=== PATIENT | male | born 1985 | race Caucasian/White ===

== ENCOUNTER 2016-10-21 17:04 | Observation (INO) | payer BC, MEDICAID ==
[2016-10-21] MEDS ORDERED: LORazepam INJ* 2 MG/ML 1 ML VIAL IV ONE ×3 (17:38)
[2016-10-21] MEDS ORDERED: NS 0.9% 1000 ML* 3,000 ML IV ONE ×2 (17:38)
[2016-10-21] MEDS: NS 0.9% 1000 ML* 3,000 ML IV ONE ×2 (17:45→18:22)
[2016-10-21 17:50] LABS: Hematocrit 49 % (42-52); Hemoglobin 17.1 g/dl (14.0-18.0); Mean Corpuscular HGB Conc 35 g/dl (31-36); Mean Corpuscular Hemoglobin 31 pg (27-31); Mean Corpuscular Volume 89 fL (80-94); Mean Platelet Volume 8 um3 (7.4-10.4); Red Blood Count 5.47 10^6/ul (4.0-5.4); Red Cell Distribution Width 13 % (10.5-15); White Blood Count 13.6 10^3/ul (3.5-10.8)
[2016-10-21 18:01] LABS: Albumin 5.3 g/dL (3.2-5.2); BUN/Creatinine Ratio 11.8 (8-20); Calcium 10.7 mg/dL (8.6-10.3); EGFR African American 91.1 (>60); EGFR Non-African American 70.8 (>60); Globulin 3.5 g/dL (2-4); Total Bilirubin 1.9 mg/dL (0.2-1.0); Total Protein 8.8 g/dL (6.4-8.9)
[2016-10-21 18:04] LABS: Potassium 2.6 mmol/L (3.5-5.0)
[2016-10-21 18:30] LABS: TSH (Thyroid Stimulating Horm) 1.06 mcIU/mL (0.34-5.60)
[2016-10-21] MEDS ORDERED: cefTRIAXone(*) 1 GM in NS 0.9% 50 ML* 50 ML IVPB ONE ×6 (18:30)
[2016-10-21] MEDS ORDERED: Azithromycin IV(*) 500 MG in NS 0.9% 250 ML* 250 ML IVPB ONE ×6 (18:30)
[2016-10-21] MEDS ORDERED: KCL 20 MEQ/100 ML IVPREMIX* 20 MEQ/100 ML BAG IV ONE ×3 (18:31)
[2016-10-21] MEDS ORDERED: Potassium Chlor TAB* 20 MEQ TAB.ER PO ONE ×6 (18:31→21:00)
--- NOTE | 2016-10-21 19:00 | RAD ---
INDICATION: Shortness of breath, cough. Exclude pneumonia. COMPARISON: None. TECHNIQUE: Dual energy PA and routine lateral views of the chest were obtained. REPORT: Mild bilateral upper lung zone alveolar opacities. Negative for volume loss to suggest atelectasis. Negative for pleural effusion or pneumothorax. The heart, pulmonary vasculature, and mediastinal contours are unremarkable. IMPRESSION: Mild bilateral upper lung zone alveolar opacities suspicious for bronchopneumonia.
[2016-10-21 19:31] LABS: Urine Bilirubin Negative (Negative); Urine Glucose 1+(50 mg/dL) (Negative); Urine Nitrite Negative (Negative)
[2016-10-21 19:46] LABS: Benzodiazepine Urine Screen None Detected (None Detect)
[2016-10-21] MEDS ORDERED: Acetaminophen TAB* 325 MG PO PRN (20:27)
[2016-10-21] MEDS ORDERED: LORazepam INJ* 2 MG/ML 1 ML VIAL IV PUSH PRN (20:27)
[2016-10-21] MEDS ORDERED: LORazepam INJ* 2 MG/ML 1 ML VIAL IV PUSH ONE ×2 (20:27)
[2016-10-21] MEDS ORDERED: NS 0.9% 1000 ML* 2,000 ML IV ONE ×3 (20:27)
[2016-10-21] MEDS ORDERED: Ondansetron INJ* 2 MG/ML VIAL IV PRN (20:27)
[2016-10-21] MEDS ORDERED: NS 0.9% 1000 ML* 1,000 ML IV SCH (20:30)
--- NOTE | 2016-10-21 21:02 | ED ---
Bennett Burnham Erika, scribed for Anson Latham MD on 10/21/16 at 1817 . Shortness of Breath - HPI Summary HPI Summary: Patient is a 30-year-old male presenting to the ED with a CC of SOB. Patient reports that at 13:00 today, he developed what he believed to be a panic attack. He reports he has a Hx panic attacks, which sometimes include SOB, chest pain, and rapid heart rate, but reports this episode to be worse. He does report recent stress as he is unemployed. Today, symptoms felt like past panic attacks at first with a rapid heart rate, but he then he developed increased SOB and chest pain. He states symptoms developed relatively quickly. He also reports a slight headache, chills earlier today, and states that breathing in and out "feels different" but cannot further describe this. He denies fever, neck pain, sinus pressure, nasal discharge, cough, abdominal pain, and pain and swelling in his legs. Patient reports caffeine use earlier today. Pt states no known exposure to illness. He states he did not have his flu shot this year. He denies recent travel or surgery. Pt denies Hx HTN, thyroid disease, asthma, COPD , and pneumothorax, and states he takes no medication. PSHx intestinal tract operation at . Pt denies FHx cardiac disease, PE, DVT. He does not smoke or drink, and occasionally uses marijuana. - History of Current Complaint Chief Complaint: EDDysrhythmPalp Time Seen by Provider: 10/21/16 17:28 Hx Obtained From: Patient, Family/Product Blending Supervisor - Onset/Duration: Sudden Onset, Lasting Hours, Still Present Timing: Constant Current Severity: Moderate Dyspnea At: Rest Alleviating Factors: Nothing - Allergy/Home Medications Allergies/Adverse Reactions: Allergies Allergy/AdvReac Type Severity Reaction Status Date / Time No Known Allergies Allergy Verified 10/21/16 17:25 PMH/Surg Hx/FS Hx/Imm Hx Endocrine/Hematology History: Denies: Hx Diabetes Psychiatric History: Reports: Hx Panic Disorder - Surgical History Surgery Procedure, Year, and Place: intestinal tract operation at Infectious Disease History: No Infectious Disease History: Denies: Traveled Outside the [place] in Last 30 Days - Family History Known Family History: Negative: Cardiac Disease, Blood Disorder - Social History Lives: With Family Alcohol Use: None Hx Substance Use: Yes Substance Use Type: Reports: Marijuana Hx Tobacco Use: No Smoking Status (MU): Never Smoked Tobacco Review of Systems Positive: Chills. Negative: Fever Negative: Nasal Discharge Positive: Palpitations, Chest Pain Positive: Shortness Of Breath. Negative: Cough Negative: Abdominal Pain Negative: Arthralgia, Myalgia, Edema Positive: Headache Positive: Anxious All Other Systems Reviewed And Are Negative: Yes Physical Exam - Summary Physical Exam Summary: The patient is well-nourished in no acute distress and in no acute pain. The skin is warm and dry and skin color reflects adequate perfusion. Pt is not diaphoretic. HEENT: The head is normocephalic and atraumatic. The pupils are equal and reactive. The conjunctivae are clear and without drainage. Nares are patent and without drainage. Mouth reveals dry mucous membranes and the throat is without erythema and exudate. The external ears are intact. The ear canals are patent and without drainage. The tympanic membranes are intact. Neck is supple with full range of motion and non-tender. There are no carotid bruits. There is no neck vein distension. The thyroid gland is palpable and is not enlarged. Respiratory: Chest is non-tender. Lungs are clear to auscultation and breath sounds are symmetrical and equal. Cardiovascular: Heart is regular rhythm but tachycardic. There is no murmur or rub auscultated. There is no peripheral edema and pulses are symmetrical and equal. Abdomen: The abdomen is soft and non-tender. There are normal bowel sounds heard in all four quadrants and there is no organomegaly palpated. There is a midline scar in the LLQ, healed. Musculoskeletal: There is no back pain noted. Extremities are non-tender with full range of motion. There is good capillary refill of 2 seconds. There is no peripheral edema or calf tenderness elicited. Neurological: Patient is alert and oriented to person, place and time. The patient has symmetrical motor strength in all four extremities. Cranial nerves are grossly intact. Psychiatric: The patient exhibits anxiety. Triage Information Reviewed: Yes Vital Signs On Initial Exam: Initial Vitals Temp Pulse Resp BP Pulse Ox 98.5 F 137 20 151/104 100 10/21/16 17:25 10/21/16 17:25 10/21/16 17:25 10/21/16 17:25 10/21/16 17:25 Vital Signs Reviewed: Yes Diagnostics - Vital Signs Vital Signs Temp Pulse Resp BP Pulse Ox 10/21/16 17:25 98.5 F 137 20 151/104 100 - Laboratory Lab Results: Lab Results 10/21/16 10/21/16 10/21/16 Range/Units 17:32 17:32 17:32 WBC 13.6 H (3.5-10.8) 10^3/ul RBC 5.47 H (4.0-5.4) 10^6/ul Hgb 17.1 (14.0-18.0) g/dl Hct 49 (42-52) % MCV 89 (80-94) fL MCH 31 (27-31) pg MCHC 35 (31-36) g/dl RDW 13 (10.5-15) % Plt Count 342 (150-450) 10^3/ul MPV 8 (7.4-10.4) um3 Neut % (Auto) 75.1 (38-83) % Lymph % (Auto) 14.2 L (25-47) % [place] % (Auto) 9.9 H (1-9) % Eos % (Auto) 0.1 (0-6) % Baso % (Auto) 0.7 (0-2) % Absolute Neuts (auto) 10.2 H (1.5-7.7) 10^3/ul Absolute Lymphs (auto) 1.9 (1.0-4.8) 10^3/ul Absolute Monos (auto) 1.3 H (0-0.8) 10^3/ul Absolute Eos (auto) 0 (0-0.6) 10^3/ul Absolute Basos (auto) 0.1 (0-0.2) 10^3/ul Absolute Nucleated RBC 0 10^3/ul Nucleated RBC % 0 INR (Anticoag Therapy) 1.09 (0.89-1.11) D-Dimer, Quantitative < 200 (Less Than 230) ng/mL Sodium 137 (133-145) mmol/L Potassium 2.6 L* (3.5-5.0) mmol/L Chloride 102 (101-111) mmol/L Carbon Dioxide 15 L (22-32) mmol/L Anion Gap 20 H (2-11) mmol/L BUN 14 (6-24) mg/dL Creatinine 1.19 H (0.67-1.17) mg/dL Est GFR ( Amer) 91.1 (>60) Est GFR (Non-Af Amer) 70.8 (>60) BUN/Creatinine Ratio 11.8 (8-20) Glucose 195 H (70-100) mg/dL Lactic Acid (0.5-2.0) mmol/L Calcium 10.7 H (8.6-10.3) mg/dL Magnesium 2.0 (1.9-2.7) mg/dL Total Bilirubin 1.90 H (0.2-1.0) mg/dL AST 19 (13-39) U/L ALT 28 (7-52) U/L Alkaline Phosphatase 56 (34-104) U/L Total Creatine Kinase 75 (10-223) U/L Troponin I 0.00 (<0.04) ng/mL B-Natriuretic Peptide ( - 100) pg/mL Total Protein 8.8 (6.4-8.9) g/dL Albumin 5.3 H (3.2-5.2) g/dL Globulin 3.5 (2-4) g/dL Albumin/Globulin Ratio 1.5 (1-3) TSH 1.06 (0.34-5.60) mcIU/mL Urine Color Urine Appearance Urine pH (5-9) Ur Specific [place] (1.010-1.030) Urine Protein (Negative) Urine Ketones (Negative) Urine Blood (Negative) Urine Nitrate (Negative) Urine Bilirubin (Negative) Urine Urobilinogen (Negative) Ur Leukocyte Esterase (Negative) Urine Glucose (Negative) Urine Opiates Screen (None Detect) Ur Barbiturates Screen (None Detect) Ur Phencyclidine Scrn (None Detect) Ur Amphetamines Screen (None Detect) U Benzodiazepines Scrn (None Detect) Urine Cocaine Screen (None Detect) U Cannabinoids Screen (None Detect) 10/21/16 10/21/16 10/21/16 Range/Units 17:32 17:32 19:16 WBC (3.5-10.8) 10^3/ul RBC (4.0-5.4) 10^6/ul Hgb (14.0-18.0) g/dl Hct (42-52) % MCV (80-94) fL MCH (27-31) pg MCHC (31-36) g/dl RDW (10.5-15) % Plt Count (150-450) 10^3/ul MPV (7.4-10.4) um3 Neut % (Auto) (38-83) % Lymph % (Auto) (25-47) % [place] % (Auto) (1-9) % Eos % (Auto) (0-6) % Baso % (Auto) (0-2) % Absolute Neuts (auto) (1.5-7.7) 10^3/ul Absolute Lymphs (auto) (1.0-4.8) 10^3/ul Absolute Monos (auto) (0-0.8) 10^3/ul Absolute Eos (auto) (0-0.6) 10^3/ul Absolute Basos (auto) (0-0.2) 10^3/ul Absolute Nucleated RBC 10^3/ul Nucleated RBC % INR (Anticoag Therapy) (0.89-1.11) D-Dimer, Quantitative (Less Than 230) ng/mL Sodium (133-145) mmol/L Potassium (3.5-5.0) mmol/L Chloride (101-111) mmol/L Carbon Dioxide (22-32) mmol/L Anion Gap (2-11) mmol/L BUN (6-24) mg/dL Creatinine (0.67-1.17) mg/dL Est GFR ( Amer) (>60) Est GFR (Non-Af Amer) (>60) BUN/Creatinine Ratio (8-20) Glucose (70-100) mg/dL Lactic Acid 6.9 H* (0.5-2.0) mmol/L Calcium (8.6-10.3) mg/dL Magnesium (1.9-2.7) mg/dL Total Bilirubin (0.2-1.0) mg/dL AST (13-39) U/L ALT (7-52) U/L Alkaline Phosphatase (34-104) U/L Total Creatine Kinase (10-223) U/L Troponin I (<0.04) ng/mL B-Natriuretic Peptide 15 ( - 100) pg/mL Total Protein (6.4-8.9) g/dL Albumin (3.2-5.2) g/dL Globulin (2-4) g/dL Albumin/Globulin Ratio (1-3) TSH (0.34-5.60) mcIU/mL Urine Color Straw Urine Appearance Clear Urine pH 6.0 (5-9) Ur Specific [place] 1.005 L (1.010-1.030) Urine Protein Negative (Negative) Urine Ketones 1+ H (Negative) Urine Blood Negative (Negative) Urine Nitrate Negative (Negative) Urine Bilirubin Negative (Negative) Urine Urobilinogen Negative (Negative) Ur Leukocyte Esterase Negative (Negative) Urine Glucose 1+(50 mg/dl) H (Negative) Urine Opiates Screen (None Detect) Ur Barbiturates Screen (None Detect) Ur Phencyclidine Scrn (None Detect) Ur Amphetamines Screen (None Detect) U Benzodiazepines Scrn (None Detect) Urine Cocaine Screen (None Detect) U Cannabinoids Screen (None Detect) 10/21/16 Range/Units 19:16 WBC (3.5-10.8) 10^3/ul RBC (4.0-5.4) 10^6/ul Hgb (14.0-18.0) g/dl Hct (42-52) % MCV (80-94) fL MCH (27-31) pg MCHC (31-36) g/dl RDW (10.5-15) % Plt Count (150-450) 10^3/ul MPV (7.4-10.4) um3 Neut % (Auto) (38-83) % Lymph % (Auto) (25-47) % [place] % (Auto) (1-9) % Eos % (Auto) (0-6) % Baso % (Auto) (0-2) % Absolute Neuts (auto) (1.5-7.7) 10^3/ul Absolute Lymphs (auto) (1.0-4.8) 10^3/ul Absolute Monos (auto) (0-0.8) 10^3/ul Absolute Eos (auto) (0-0.6) 10^3/ul Absolute Basos (auto) (0-0.2) 10^3/ul Absolute Nucleated RBC 10^3/ul Nucleated RBC % INR (Anticoag Therapy) (0.89-1.11) D-Dimer, Quantitative (Less Than 230) ng/mL Sodium (133-145) mmol/L Potassium (3.5-5.0) mmol/L Chloride (101-111) mmol/L Carbon Dioxide (22-32) mmol/L Anion Gap (2-11) mmol/L BUN (6-24) mg/dL Creatinine (0.67-1.17) mg/dL Est GFR ( Amer) (>60) Est GFR (Non-Af Amer) (>60) BUN/Creatinine Ratio (8-20) Glucose (70-100) mg/dL Lactic Acid (0.5-2.0) mmol/L Calcium (8.6-10.3) mg/dL Magnesium (1.9-2.7) mg/dL Total Bilirubin (0.2-1.0) mg/dL AST (13-39) U/L ALT (7-52) U/L Alkaline Phosphatase (34-104) U/L Total Creatine Kinase (10-223) U/L Troponin I (<0.04) ng/mL B-Natriuretic Peptide ( - 100) pg/mL Total Protein (6.4-8.9) g/dL Albumin (3.2-5.2) g/dL Globulin (2-4) g/dL Albumin/Globulin Ratio (1-3) TSH (0.34-5.60) mcIU/mL Urine Color Urine Appearance Urine pH (5-9) Ur Specific [place] (1.010-1.030) Urine Protein (Negative) Urine Ketones (Negative) Urine Blood (Negative) Urine Nitrate (Negative) Urine Bilirubin (Negative) Urine Urobilinogen (Negative) Ur Leukocyte Esterase (Negative) Urine Glucose (Negative) Urine Opiates Screen None detected (None Detect) Ur Barbiturates Screen None detected (None Detect) Ur Phencyclidine Scrn None detected (None Detect) Ur Amphetamines Screen None detected (None Detect) U Benzodiazepines Scrn None detected (None Detect) Urine Cocaine Screen None detected (None Detect) U Cannabinoids Screen None detected (None Detect) Result Diagrams: 10/21/16 17:32 10/21/16 17:32 Lab Statement: Any lab studies that have been ordered have been reviewed, and results considered in the medical decision making process. - Radiology CXR Radiology Interpretation Completed By: Radiologist - IMPRESSION: Mild bilateral upper lung zone alveolar opacities suspicious for bronchopneumonia. - EKG 17:13 Cardiac Rate: Tachycardia - at 140 bpm EKG Rhythm: Sinus Tachycardia ST Segment: Non-Specific Re-Evaluation - Re-Evaluation First Eval Re-Evaluation Time: 18:35 Comment: reviewed labs with family. stated an elevated lactic, white count. this could be sepsis. we will treat with abx pending CXR report. he is still tachycardic and tachypnic. pt does appear more relaxed Second Eval Re-Evaluation Time: 19:42 Comment: Discussed CXR results and plan for admission. Pt agrees with plan Course/Dx - Course Assessment/Plan: Pt presents for sudden onset of SOB at 1 pm today, and he thought he was having a panic attack. He was not able to relax. He has been under a great deal of stress. He was tachycardic, hypertensive, and tachypnic upon arrival. Routine lab studies showed an elevated lactic acid greater than 3x normal, elevated WBC with a left shift and a low potassium of 2.6. He had a CXR consistent with pneumonia. He was given IV fluids and was empirically treated with azithromycin and rocephin. He had potassium replacement. We consulted the hospitalist for admission. - Diagnoses Differential Diagnosis/HQI/PQRI: Positive: Bronchitis, CHF, OH, Pneumonia, Pneumothorax, Pulmonary Embolism Provider Diagnoses: Pneumonia, Lactic acidosis - Physician Notifications Discussed Care of Patient With: Dr. Bhatt (hospitalist) at 19:33 - agrees to admit Discharge - Discharge Plan Condition: Stable Disposition: ADMITTED TO [facility] The documentation as recorded by the Bennett molina Erika accurately reflects the service I personally performed and the decisions made by me, Anson Latham MD.
--- NOTE | 2016-10-22 01:09 | HP ---
HISTORY AND PHYSICAL: DATE OF ADMISSION: 10/21/16 PRIMARY CARE PROVIDER: Dr. Melvi Sullivan. ATTENDING PHYSICIAN WHILE IN THE HOSPITAL: Richard Bhatt MD* (report being dictated by Malik French NP). CHIEF COMPLAINT: 1. Anxiety. 2. Chest discomfort. 3. Palpitations. HISTORY OF PRESENTING ILLNESS: Mr. Gant is a 30-year-old male patient, he has a history of irritable bowel syndrome only. He comes into the ER today stating that over the last couple of weeks he has had a lot of stress, particularly at work. He was unemployed. He recently did find a job. He recently had to undergo in an interview today and in addition of this also because of the current political state, the patient has been feeling a significant amount of stress, particularly he says when he goes home that is the only thing that he ever sees on TV or reads in the news or he is online and it has been wearing on him. He states that over the last 2 weeks he has had frequent, what he believes are panic attacks. He says he feels tense across the back of his shoulders, he gets palpitations, he has chest pressure in the last couple of weeks, frequency has been increasing and he has been able to make the attacks go away by removing himself from the situation and taking deep breath but today , he tried using different coping mechanisms and he just felt that the palpitations continued. He felt still having chest pressure. He felt very tense, he said across his shoulders. He tried walking and ambulating around his property but this did not make things get better, which he usually does. He tried taking deep cleansing breaths he says but this was not helping as well. He continued to have palpitations. He does admit stating that he had a bottle of wine yesterday, which he usually does not drink that much but he was watching football throughout the day. In addition of this, he also had an extra cup of coffee this morning for his job and he drank he thinks a 16 to 20- ounce additional cup of coffee and since then he has been having palpitations off and on today and he has not been drinking as much throughout the last 24 to 36 hours. He says that he has not had any fevers. He does admit to stating that last week he did have a rhinorrhea but no sore throat, no cough or any shortness of breath or fevers. He denies having any chills. Denies taking any [id number] medications within the last 24 hours. He says he was taking NyQuil PM. He had an Advil PM the other night but no Sudafed or anything of that nature. He states that at times when he has these episodes, he feels like his fingers are tingling. He feels again very tense and stressed. He came to the ER today because things were not getting better, it was found that he was tachycardic in the 130s to 140s range when he came in. It was found that his white count was up and there was a chest x-ray concerning for pneumonia. Hospitalist service was asked to evaluate for admission as his potassium was low and his lactic acid was almost 7. PAST MEDICAL HISTORY: Significant for IBS. PAST SURGICAL HISTORY: He has had abdominal surgery when he was a child. HOME MEDICATIONS: Denied. ALLERGIES TO MEDICATIONS: Include no known drug allergies. FAMILY HISTORY: Reviewed and noncontributory. SOCIAL HISTORY: He does not smoke. He occasionally drinks alcohol. He is in a monogamous relationship with his girlfriend and he is currently unemployed but is in the midst of trying to obtain employment. REVIEW OF SYSTEMS: There is no documented fever. He denied having any significant weight change. There was no double vision. There was no ear discharge. There was rhinorrhea, but this has now subsided. He denies having any chest discomfort currently. He denied having any orthopnea. No nocturnal dyspnea. There was no abdominal pain. No nausea, no vomiting. No dysuria, no frequency. No loss of consciousness. No pruritus and no skin ulceration. Review of 14 systems was completed, all others negative. PHYSICAL EXAMINATION GENERAL: At this time, Mr. Gant is a 30-year-old male patient, appears well nourished, well developed, does not appear to be in any acute distress. VITAL SIGNS: Blood pressure 133/94 with pulse of 115, respirations 14, O2 sat 100%, and temperature 99.0. HEENT: Head is atraumatic and normocephalic. Eyes; EOMs are intact. Sclerae are anicteric, not pale. NECK: Supple. Throat: Oral mucosa appears to be dry. No oropharyngeal erythema. LUNGS: Clear to auscultation bilaterally. No wheezes, rales, or rhonchi. HEART: Sounds S1 and S2. Regular rate and rhythm. He is tachycardic. No murmurs, rubs, or gallops. ABDOMEN: Soft, flat, nontender. Bowel sounds are present. EXTREMITIES: Pulses 2+ throughout. He is able to move all 4 extremities with 5 /5 strength. NEUROLOGIC: He is awake, alert, and oriented x3. Tongue is midline. Door Operator were equal. No gross focal deficits. SKIN: Grossly intact. DIAGNOSTIC STUDIES/LAB DATA: Today revealed a WBC of 13.6, RBC of 5.47, hemoglobin of 17.1, hematocrit of 49, platelet count of 342. INR of 1.09, D- dimer less than 200. Sodium was 137, potassium was 2.6, chloride of 102, his bicarb was 15, BUN 14, creatinine 1.19, glucose 195, lactic 6.9, calcium 10.7, total bilirubin 1.9, mag 2.0. His AST is 19, ALT 20, alk phos 56. CK 75, troponin 0. BNP 15. Albumin 5.3. Urine showed a low specific gravity, 1+ ketones, 1+ blood. U-tox was negative. He did have a chest x-ray obtained today, radiology reads it as mild bilateral upper lung zone alveolar opacity suspicious for bronchopneumonia. On my review, I do see the upper lobe particularly in the right side there may be an early infiltrate there. He did have an EKG obtained today, which does show a sinus tachycardia at a rate of 140. He had no ST elevation. He did have LVH and he did appear to have J- point elevation and minimal ST elevation. Old medical records were reviewed. ASSESSMENT AND PLAN: Mr. Gant is a 30-year-old male patient coming into the ER today with complaints of feeling anxious, tense, chest pain, having palpitations. On evaluation in the ER, it was noted that his heart rate was in the 140 range and a lactic of 7. Hospitalist service was asked to evaluate for admission. He will be admitted under observation status for: 1. Pneumonia. At this point, I am going to go ahead and put him on Rocephin and ceftriaxone. We will get a Legionella antigen and strep pneumo antigen. Check him for influenza, try to get a sputum culture but he is not really coughing. He is not getting clinical signs of pneumonia but the x-ray does show possibly that there is pneumonia, so I think we should treat it. It still could be viral. For the time being, we will hydrate him aggressively. He got 2 L of fluid in the ER but I think he is dehydrated. The patient when he sat up just interviewing him, his heart rate went up to 140 just sitting up, so I think he deserves another 2 L bolus of normal saline at 150 an hour. He has been pancultured and I will continue to follow. 2. Hypokalemia. We will place him on telemetry and we will go ahead and replace his potassium. 3. Hypercalcemia. His calcium is 10.7, I think it could be element of dehydration. We will give him a quite a bit of fluids. We will repeat his BMP in the morning and follow. 4. Dehydration. Again, clinically he appears to be dehydrated. His mucous membranes are dry. When he changes position, he is tachycardic. I think it is a combination of drinking alcohol yesterday, in addition to this the fact that he did have 2 cups of extra coffee today is all contributing to him being dehydrated, so we will go ahead and hydrate him aggressively and we will follow. I will also get orthostatics. 5. Left ventricular hypertrophy, on EKG. We will go ahead and repeat his EKG after we slow his rate down. Continue to follow. 6. Irritable bowel syndrome. Continue with supportive care. 7. DVT prophylaxis. He will be placed on SCDs. 8. Code status. Full code. 9. Lactic acidosis. I am unsure of the etiology of this. I think it could be related to dehydration possibly, although this is rather high lactic for this, so I am going to give him 5 L of fluid. He got 3 already, 2 more and repeat the lactic. He does not appear to be hypotensive. He does not appear to be in a shock state, so I would like to repeat this after the fluids and monitor. 10. Fluids, electrolytes, and nutrition. He can have a regular diet. TIME SPENT: On the admission was approximately 60 minutes with greater than half the time was spent [id number] with the patient obtaining my history and physical, other half time was spent going over the plan of care with the patient and implementing plan of care. I did discuss the plan of care with my attending, Dr. Bhatt, he is in agreement. MALIK FRENCH NP CC: Dr. Melvi Sullivan* [id number]/CPS #: [id number] ORA
[2016-10-22 05:47] LABS: Hematocrit 39 % (42-52); Hemoglobin 13.6 g/dl (14.0-18.0); Mean Corpuscular HGB Conc 35 g/dl (31-36); Mean Corpuscular Hemoglobin 31 pg (27-31); Mean Corpuscular Volume 90 fL (80-94); Mean Platelet Volume 8 um3 (7.4-10.4); Red Blood Count 4.34 10^6/ul (4.0-5.4); Red Cell Distribution Width 13 % (10.5-15); White Blood Count 6.8 10^3/ul (3.5-10.8)
[2016-10-22 06:05] LABS: Troponin I 0.01 ng/mL (<0.04)
[2016-10-22 06:06] LABS: Calcium 8.7 mg/dL (8.6-10.3); EGFR African American 111.4 (>60); EGFR Non-African American 86.6 (>60); Potassium 3.7 mmol/L (3.5-5.0)
[2016-10-22] MEDS ORDERED: Influenza VAC *QUAD* 2016-17* 0.5 ML SYRINGE IM ONE (09:00)
[2016-10-22] MEDS ORDERED: NS 0.9% 1000 ML* 1,000 ML IV SCH (11:11)
--- NOTE | 2016-10-22 11:53 | ECHO ---
Patient: MICHELLE JANSEN [facility] Rec#: [id number] : 1985 Date: 10/22/2016 Age: 30y Height: 182.88 cm / 72.0 in Weight: 83.91 kg / 184.9 lbs Sex: M BSA: 2.06 Room#: 433 Admit Date#: 10/21/2016 Type: Inpatient Referring: Malik French NP Reading: Tony Mgcarry MD Privacy Attorney: Butch Ivory RDCS Transthoracic Echocardiogram Indication: LVH BP: 105/70 HR: 95 Rhythm: NSR Findings History: ANX, chest, discomfort,palpitation. Technical Comments: The study quality is fair. The study is technically limited due to poor apical windows. Left Ventricle: The left ventricular chamber size is normal. Global left ventricular wall motion and contractility are within normal limits. There is normal left ventricular systolic function. The estimated ejection fraction is 55-60%. Left Atrium: The left atrial chamber size is normal. Right Ventricle: The right ventricular cavity size is normal. The right ventricular global systolic function is normal. Right Atrium: The right atrial cavity size is normal. Aortic Valve: The aortic valve is trileaflet. There is no evidence of aortic regurgitation. There is no evidence of aortic stenosis. Mitral Valve: There is a trace of mitral regurgitation. There is no evidence of mitral stenosis. Tricuspid Valve: There is no evidence of tricuspid valve regurgitation. Pulmonic Valve: The pulmonic valve structure is not well visualized. There is no evidence of pulmonic regurgitation. Pericardium: There is no pericardial effusion. Aorta: There is no dilatation of the ascending aorta. There is no dilatation of the aortic arch. There is no dilation of the aortic root. Pulmonary Artery: The main pulmonary artery is not well visualized. Venous: The inferior vena cava appears normal in size. There is a greater than 50% respiratory change in the inferior vena cava dimension. Conclusions The left ventricular chamber size is normal. Global left ventricular wall motion and contractility are within normal limits. There is normal left ventricular systolic function. The estimated ejection fraction is 55-60%. There is no evidence of mitral regurgitation.prominent posterior leaflet chordae vs. linear strand off posterior leaflet seen There is a trace of mitral regurgitation. No reports of prior studies offered for comparison. Measurements Name Value Normal Range RVIDd (AP) 2D 2.4 cm (0.9 - 2.6) RVDdMajor (2D) 3 cm (2.2 - 4.4) RAd ISD 4CH 4.6 cm (3.4 - 4.9) RA (A4C)W 2.6 cm (2.9 - 4.6) IVSd (2D) 0.8 cm (0.6 - 1) LVPWd (2D) 1.2 cm (0.6 - 1) LVIDd (2D) 4.4 cm (3.6 - 5.4) LVIDs (2D) 2.6 cm - Aortic Annulus 1.6 cm (1.4 - 2.6) Ao root diameter (2D) 2.6 cm (2.1 - 3.5) Ascending Ao 2.6 cm (2.1 - 3.4) Aortic arch 1.9 cm (1.8 - 3.4) LA dimension (AP) 2D 3.3 cm (2.3 - 3.8) LAd ISD 4CH 4.6 cm (2.9 - 5.3) LA ISD 4CH W 2.6 cm (2.5 - 4.5) Name Value Normal Range LA ESV SP 4CH (A/L) 33 ml - LA ESV SP 2CH (A/L) 33 ml - LA ESV BP (A/L) 33 ml - LA ESV BP (A/L) index 16.16 ml/m2 - LA ESV SP 4CH (MOD) 31 ml - LA ESV SP 2CH (MOD) 31 ml - Name Value Normal Range MV E-wave Vmax 0.52 m/sec - MV deceleration time 59 msec - MV A-wave Vmax 0.5 m/sec - MV E:A ratio 1.03 ratio - LV septal e' Vmax 0.1 m/sec - LV lateral e' Vmax 0.11 m/sec - LV E:e' septal ratio 5.2 ratio - LV E:e' lateral ratio 4.72 ratio - Name Value Normal Range LVOT Vmax 0.8 m/sec - Name Value Normal Range IVC diameter 1.79 cm - Name Value Normal Range PV Vmax 0.9 m/sec -
[2016-10-22 12:20] VITALS: BP 133/84
[2016-10-22] MEDS ORDERED: Azithromycin IV(*) 500 MG in NS 0.9% 250 ML* 250 ML IVPB SCH (18:00)
[2016-10-22] MEDS ORDERED: cefTRIAXone VIAL(*) 1,000 MG in NS 0.9% 50 ML* 50 ML IVPB SCH (19:30)
--- NOTE | 2016-10-23 02:58 | DS ---
DISCHARGE SUMMARY: DATE OF ADMISSION: 10/21/16 DATE OF DISCHARGE: 10/22/16 DISCHARGE DIAGNOSES: 1. Sepsis. 2. Possible pneumonia. 3. Anxiety. 4. Dehydration. 5. Lactic acidosis. 6. Hypokalemia. 7. Hypercalcemia. 8. Leukocytosis. 9. Minimal elevation of troponin. SECONDARY DIAGNOSES: 1. Irritable bowel syndrome. 2. Anxiety. MEDICATION LIST: 1. Ceftin 250 mg p.o. b.i.d. for 7 days. 2. Azithromycin 250 mg p.o. daily for 4 days. HOSPITAL COURSE: Mr. Gant is a 30-year-old male with a past medical history as stated above that presented to the emergency room yesterday with complaints of palpitations and shortness of breath. The patient has been under a lot of stress over the past 6 months since he lost his job. He states that initially he was okay, but as time went by and he could not find another job, the anxiety around the issue became a significant issue. He states that over the weekend, he went on a 4-mile walk with his parents and he states that he also had caffeine and wine, things that he has avoided as in the past, they had caused palpitations. He states that yesterday, he started to feel some tightness on his back followed by palpitations and shortness of breath. For more details about his presentation, I refer to his history and physical. In the emergency room, he was found to have a white cell count of 13 with a potassium of 2.6, creatinine of 1.1, lactic acid of 6.9, calcium of 10.7, and his chest x-ray showed mild bilateral upper lung zone alveolar opacities suspicious for bronchial pneumonia. The patient was admitted under the impression of pneumonia with sepsis and he was started on ceftriaxone, Zithromax, and IV hydration. His laboratory test has shown significant improvement with resolution of the leukocytosis, hypokalemia, and lactic acidosis. His renal function is back to normal. Although, he had no fever or cough, he was tachycardic on admission with a heart rate of 140. He feels well at this time. The palpitations and the shortness of breath have resolved. The patient did meet SIRS criteria and it is possible that he does have a pneumonia at this time (viral or bacterial), but he is feeling much improved and would prefer to be discharged home. As his labs have basically normalized at this point and his vital signs remained stable, I believe he can be discharged home. Influenza test was negative. Blood cultures are pending at the time of this dictation and should be followed as outpatient. We discussed the possibility of a viral versus bacterial infection, but I believe he should be on antibiotics because this was a sudden-onset illness with significant laboratory and vital signs changes and I am concerned that if he goes without antibiotics, he may have recurrence. The patient is in agreement with treatment. His anxiety also appears to be a problem and was certainly worsening his symptoms yesterday. 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 I believe benzodiazepines are not indicated at this point and I have shared my belief with the patient. He is in agreement with following up with Dr. Sullivan to decide to explore other options. The patient had a transthoracic echocardiogram that showed left ventricular chamber size is normal , global left ventricular wall motion and contractility within normal limits. Ejection fraction of 50% to 60%. No evidence of mitral regurgitation. There is a prominent posterior leaflet chordae versus linear strand of the posterior leaflet seen, trace mitral regurgitation. The patient had serial troponins checked and one of them was 0.04, but it is just above the limits of normal. I believe this could be secondary to increased demand in the setting of sepsis, but as he has no wall motion abnormalities on his echo and no other risk factors for coronary artery disease, I believe a stress test is not indicated at this time. He is medically stable for discharge. PHYSICAL EXAMINATION: Vital signs: Temperature 99.0, heart rate is 89, respiratory rate of 16, oxygen saturation 97% on room air, blood pressure is 133 /84. General: The patient is a pleasant young male, lying in bed, in no acute distress. CVS: Normal S1 and S2. Regular rate and rhythm. Chest: Breath sounds with scattered wheeze on the right. Abdomen: Soft. Bowel sounds present. Extremities: No edema. Neuro: He is alert and oriented x3. Able to move all 4 extremities. DIET: Regular diet. ACTIVITIES: As tolerated. DISPOSITION: To home. STATUS WHILE IN THE HOSPITAL: Observation. If you need more information, please feel free to call me at [phone] or please obtain the full medical records. TIME SPENT: Approximately 45 minutes were spent to complete this discharge. CC: Dr. Melvi Sullivan* [id number]/CPS #: [id number] ORA
== END 2016-10-22 16:20 | disposition home or self-care (01) ==
LOC: ED 17:04 → MERGE 20:22 → MEDTELE 20:22
PROVIDERS: ADMIT Internal Medicine; ATTEND Internal Medicine
DX: A41.9 Sepsis, unspecified organism (principal); J18.9 Pneumonia, unspecified organism; F41.9 Anxiety disorder, unspecified; E86.0 Dehydration; E87.2 Acidosis; E87.6 Hypokalemia; E83.52 Hypercalcemia; D72.829 Elevated white blood cell count, unspecified; R79.9 Abnormal finding of blood chemistry, unspecified; I51.7 Cardiomegaly; K58.9 Irritable bowel syndrome, unspecified; R07.9 Chest pain, unspecified; R00.2 Palpitations; R06.02 Shortness of breath; R00.0 Tachycardia, unspecified; Z23 Encounter for immunization
CPT/HCPCS: 36415; 71020; 80048; 80053; 80307; 81003; 82550; 83605; 83735; 83880; 84443; 84484; 85025; 85379; 85610; 87040; 87502; 90471; 90686; 93005; 93306; 94760; 96361; 96365; 96367; 96375; 96376; 99283; A9270-GY; G0008; G0378; J0456; J0696; J2060; J3480